=== PATIENT | female | born 2000 | race Caucasian/White ===

== ENCOUNTER 2024-11-02 10:00 | Outpatient (RCR) | payer BC, SELFPAY | END 2025-01-03 11:36 | disposition home or self-care (01) | PROVIDERS: Visit Provider Physician Assistant Medical | DX: G89.4 Chronic pain syndrome (principal); R51.9 Headache, unspecified; R42 Dizziness and giddiness; M54.2 Cervicalgia; Z51.89 Encounter for other specified aftercare | CPT/HCPCS: 97110; 97140; 97162 ==

== ENCOUNTER 2025-01-09 12:01 | Emergency (ER) | payer BC, SELFPAY ==
[2025-01-09] VITALS (21 sets, daily range): BP systolic 97–112; BP diastolic 68–81; PULSE 75–107; RESP 10–21; TEMP 37; O2SAT 97–100; BMI 20.7
--- OUTSIDE RECORDS SUMMARY | 2025-01-09 12:04 | XMS_ITS | Clinical Summary ---
Author Organization [facility] Address [address] [address] Care Team Providers Care Scientific Illustrator Name Role Phone Unassigned, Provider Primary Care Provider Unava ilable Source Comments You are receiving this document as you are listed as the primary care provider,follow-up provider, or the patient has been referred to you for consultation.This is in compliance with the Medicare andMedicaid EHR Incentive Program,which states Providers who transition their patient to another setting of careor provider of care or refers their patient to another provider of care shouldprovide summary care record for each transition of care or referral. [facility] Allergies Active Allergy Reactions Criticality Noted Date Comments Amoxicillin Unknown 09/22/2017 Penicillins Hives High 05/26/2018 Medications ketoconazole (NIZORAL) 2 % shampoo ERIC EXT 3 TO QDW DIRECTED. LEAVE ON FOR 5 MIN THEN WASH OUT 11 03/18/2019 Active oseltamivir (TAMIFLU) 75 MG capsule 0 01/30/2019 Active Active Problems No known active problems Social History Tobacco Use Types Packs/Day Years Used Date Smoking Tobacco: Never Smokeless Tobacco: Never Alcohol Use Standard Drinks/Week Comments Never 0 (1 standard drink = 0.6 oz pur e alcohol) AUDIT-C Answer Date Recorded Frequency of Alcohol Consumption Never 04/20/2019 Average Number of Drinks Not on file 019 Frequency of Binge Drinking Not on file 03/27 Comments No Sex and Gender Information Value Date Recorded Sex Assigned at Not on file Legal Sex Female 5:24 AM CDT Gender Identity Not on file Sexual Orientation Not on file Plan of Treatment Health Maintenance Due Date Last Done Comments Cervical Cancer Screening Due 2002 Chlamydia 2002 Hep C Screening (Preventive Services) 2002 MenB Immunization Discussion 2002 IPV (Polio) Vaccine (3 of 3 - 4-dose series) 09/17/2008 03/18/2008, 02/03/2004 HIV Screening (Preventive Services) 2018 Adult Preventive Visit 2020 HepB Vaccine (1) 2021 COVID-19 Vaccine (3 - season) 2024 01/26/2021, 12/29/2020 Influenza Vaccine (#1) 2024 1, 08/07/2010, 07/22/2009, Additional history exists DTaP/Tdap/Td Vaccine (4 - Tdap) 03/17/2025 03/17/2015, 03/18/2008, 10/28/2003 Zoster/Shingles Vaccine (1 of 2) 2052 Hib Vaccine Completed 10/28/2003 Pneumococcal Vaccine Aged Out 10/28/2003, 07/30/20 03 No longer eligible based on patient's age to complete this topic HepA Vaccine Completed 05/09/2007, 11/07/2006 HPV Vaccine Completed 06/18/2016, 04/26, 03/17/2015 MCV4 Vaccine Completed 08/10/2019, 05/08/2015 Insurance [facility] Care Teams Scientific Illustrator Relationship Specialty Start Date End Date Unassigned, Provider [address] [place] [address] PCP - General 02
--- OUTSIDE RECORDS SUMMARY | 2025-01-09 12:04 | XMS_ITS | Clinical Summary ---
Author Organization [facility] Address [address] [place] [address] Care Team Providers Care Gold And Silver Assayer Name Role Phone Galileo Arreaga APRN CADD OPERATOR Primary Car e Provider Ramírez Corcoran MD Unavailable [phone] Allergies Active Allergy Reactions Criticality Noted Date Comments Amoxicillin 09/09/2019 Penicillins 09/09/2019 Medications SERTRALINE HCL PO Take 50 mg by mouth daily Active amphetamine-dext roamphetamine (ADDERALL XR) 15 MG 24 hr capsule Take 15 mg by mouth daily Active Active Problems No known active problems Resolved Problems Problem Noted Date Diagnosed Date Resolved Date Neck pain 08/20/2019 12/20/2019 Tension headache 08/20/2019 12/20/2019 Postural kyphosis, 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 12/20/2019 Social History Tobacco Use Types Packs/Day Years Used Date Smoking Tobacco: Never Smokeless Tobacco: Never Alcohol Use Standard Drinks/Week Comments Not Currently 0 (1 standard drink = 0.6 oz pur e alcohol) Adolescent Education Answer Date Record ed Getting School Help Needed Not on file 06/17 Comments Unknown Sex and Gender Information Value Date Recorded Sex Assigned at Not on file Legal Sex Female 11:41 AM SEWING MACHINE REPAIRER Gender Identity Nonbinary 11/23/2022 10:10 AM SEWING MACHINE REPAIRER Sexual Orientation Not on file Last Filed Vital Signs Vital Sign Reading Time Taken Comments Blood Pressure 106/70 12/10/2022 9:10 AM CDT Pulse 115 12/10/2022 9:10 AM CDT Temperature 37.3 C (99.2 F) 09/09/2019 6:00 PM SEWING MACHINE REPAIRER Respiratory Rate - - Oxygen Saturation 100% 12/10/2022 9:10 AM CDT Inhaled Oxygen Concentration - - Weight 59.9 kg (132 lb) 12/10/2022 9:10 AM CDT Height 174 cm (5' 8.5) 12/10/2022 9:10 AM CDT Body Mass Index 19.78 12/10/2022 9:10 AM CDT Plan of Treatment Health Maintenance Due Date Last Done Comments ADVANCE CARE PLANNING 2002 ANNUAL REVIEW OF HM ORDERS 2002 CHLAMYDIA SCREENING 2002 HEPATITIS B IMMUNIZATION (2 of 3 - 3-dose series) 11/25/2003 10/28/2003 HIV SCREENING 2017 HEPATITIS C SCREENING 2020 PAP 2023 COVID-19 Vaccine ( season) 2024 06/15/2022, 08/16/2021, 01/26/2021, Additional history exists INFLUENZA VACCINE (#1) 2024 1, 08/07/2010, 10/07/2009, Additional history exists PHQ-2 (once per calendar year) 2024 YEARLY PREVENTIVE VISIT 12/26/2024 12/27/2023 DTAP/TDAP/TD IMMUNIZATION (4 - Td or Tdap) 03/17/2025 03/17/2015, 03/18/2008, 10/28/2003 ZOSTER IMMUNIZATION (1 of 2) 2052 Pneumococcal Vaccine: Pediatrics (0 to 5 Years) and At-Risk Patients (6 to 49 Years) Aged Out 10/28/2003, 07/30/2003 No longer eligibl e based on patient's age to complete this topic HPV IMMUNIZATION Completed 06/18/2016, , 03/17/2015 MENINGITIS IMMUNIZATION Completed 08/10/2019, 05/08 MENINGITIS B IMMUNIZATION Completed 05/04/2021, 04/2021 Insurance [employer] [facility] Care Teams Gold And Silver Assayer Relationship Specialty Start Date End Date Galileo Arreaga, STRATEGIC SOLUTIONS CONSULTANT CADD OPERATOR [facility] [address] [address] PCP - General 09/09/19 Ramírez Corcoran MD [address] [address] Cardiovascular Disease 11/23/22
--- OUTSIDE RECORDS SUMMARY | 2025-01-09 12:04 | XMS_ITS | Clinical Summary ---
Author Organization [facility] Address [address] [place] [address] Care Team Providers Care Director Of Research Name Role Phone Donna Adams MD Primary Care Prov ider Allergies Active Allergy Reactions Criticality Noted Date Comments Amoxicillin Hives 09/09/2019 Influenza Virus Vaccines Anaphylaxis High 12/27/2023 Penicillins Hives 09/09/2019 Medications methylphenidate HCl (RITALIN) 5 mg tablet TAKE 1 TABLET BY MOUTH ONCE A DAY FILL ON OR AFTER 11/01/23 4 Active hydrOXYzine HCL (ATARAX) 25 mg tablet Take 25 mg by mouth at bedtime. 4 Active divalproex 250 mg Delayed-Release tabletIndication s:Migraine with status migrainosus, not intractable, unspecified migraine type Take 1 Tablet (250 mg) by mouth once daily. 30 Tablet 5 Active vilazodone 20 mg tablet 2 Tablets (40 mg). 5 Active vilazodone 20 mg tablet TAKE 1 TABLET BY MOUTH ONCE A DAY TAKE WITH FOOD 4 12/29/19 25 Discontinu ed(Reorder (E-cancel not sent)) Encounters Date Type Department Care Team Description 01/09/2025 Nurse Triage [address] [address] Donna Adams MD Dizziness 12/28/2024 11:50 AM CDT Office Visit [facility] [address] [place] [address] Jammie White PA Medication Management (Discuss different option for the headaches) 12/28/2024 Travel 11/26/2024 12:00 PM VAULT TELLER Procedure Only [facility] [address] [place] [address] Lauren Nunes L Ac Acupuncture 11/26/2024 Travel 11/12/2024 9:00 AM VAULT TELLER Procedure Only [facility] [address] [place] [address] Lauren Nunes L Ac Acupuncture 11/12/2024 Travel 10/23/2024 Telephone [facility] [address] [place] [address] Jammie White PA Medication Management (Managing Manjinder's medication) 10/19/2024 10:10 AM VAULT TELLER Office Visit [facility] [address] [place] [address] Jammie Whiet PA Medication Management (Topamax follow up on 50 mg - has not had a migraine this past week, still has no appetite, been depressed more than normal this past week.) 10/19/2024 Travel 10/12/2024 2:00 PM VAULT TELLER Office Visit [facility] [address] [place] [address] Jammie White PA Follow Up (Topamax is not helping with headaches so far. ) 10/11/2024 9:00 AM VAULT TELLER Procedure Only [facility] [address] [place] [address] Lauren Nunes L Ac Acupuncture 10/11/2024 Travel from Last 3 Months Immunizations Immunization Administration Dates Next Due DTaP 03/18/2008,10/28/2003 HIB-HepB (Comvax) 10/28/2003 HPV 9 (Gardasil 9) 06/18/2016,05/08/2015, 015 Hepatitis A (Peds) 05/09/2007,11/07/2006 Inactivated Polio Vaccine 03/18/2008,02/03/2004 Influenza A (H1N1), Inactivated 10/07/2009,08/15 Influenza Virus, Unspecified 08/25/2021(Deferred : Patient Refused) Influenza, IIV3 (Age 6-35 mos) 0,07/22/2009,07/11/2008,07/27 Influenza, IIV3 (Age >=3 years) 07/23/20 11,08/09/2006,08/30/2005,07/13,08/12/2003 MENINGOCOCCAL VACCINE 2 VIAL [id number] (MENVEO) 08/10/2019,05/08/2015 MMR 03/18/2008,08/12/2003 Meningococcal B 05/04/2021 Pneumococcal conj 7-Valent (Prevnar 7) 4,07/30/2003 Tdap 03/17/2015 Varicella Vaccine 03/18/2008,08/12/2003 Family History Medical History Relation Name Comments Ankylosing spondylitis Father Cancer-prostate Maternal Grandfather Arlette-Danlos syndrome Mother not c onfirmed Endometriosis Mother Kidney cancer Paternal Grandmother Endometriosis Sister 1 Other Sister 1 POTs Asthma Sister 2 Relation Name Status Comments Father Alive Maternal Grandfather Alive Maternal Grandmother Alive Mother Alive Paternal Grandfather Alive Paternal Grandmother Alive Sister 1 Alive Sister 2 Alive Social History Tobacco Use Types Packs/Day Years Used Date Smoking Tobacco: Never Smokeless Tobacco: Never Tobacco Cessation:Counseling Given: Yes Alcohol Use Standard Drinks/Week Comments Never 0 (1 standard drink = 0.6 oz pur e alcohol) PHQ-2 Answer Date Recorded PHQ-2 TOTAL SCORE 2 10/19/2024 Social Connections Answer Date Recorded Do you often feel lonely or isolated from those around you? 0 12/28/2024 Financial Resource Strain Answer Date R ecorded Difficulty of Paying Living Expenses 3 12/28/2024 Difficulty of Paying Living Expenses Not on file 12/28/2024 Food Insecurity Answer Date Recorded Do you worry your food will run out before you are able to buy more? 1 12/28/2024 Transportation Needs Answer Date Record ed Does lack of transportation keep you from medica l appointments? 1 12/28/2024 Does lack of transportation keep you from work, meetings or getting things that you need? 1 12/28/2024 Housing Stability Answer Date Recorded What is your housing situation today? 1 12/28/2024 Utilities Answer Date Recorded Do you have trouble paying f or utilities (for example, heat, electricity, water, phone)? 1 12/28/2024 Comments No Sex and Gender Information Value Date Recorded Sex Assigned at Female 11/23/2022 9:30 AM VAULT TELLER Legal Sex Female 8:14 AM VAULT TELLER Gender Identity Male 11/23/2022 9:30 AM VAULT TELLER Sexual Orientation Not on file Obstetrics History Last Filed Vital Signs Vital Sign Reading Time Taken Comments Blood Pressure 105/73 12/28/2024 11:46 AM CDT Pulse 112 12/28/2024 11:46 AM CDT Temperature 36.4 C (97.6 F) 12/27/2023 1:56 PM CDT Respiratory Rate - - Oxygen Saturation 99% 08/06/2024 3:02 PM VAULT TELLER Inhaled Oxygen Concentration - - Weight 63.8 kg (140 lb 9.6 oz) 12/28/2024 11:46 AM CDT Height 174.5 cm (5' 8.7) 08/06/2024 3:02 PM VAULT TELLER Body Mass Index 20.94 08/06/2024 3:02 PM VAULT TELLER Plan of Treatment Upcoming Encounters Date Type Department Care Team (Late st Contact Info) Description 01/11/2025 11:30 AM CDT Office Visit [facility] [address] [place] [address] Jammie White PA [address] [place] [address] Health Maintenance Due Date Last Done Comments HIV for age 15-65 2017 Chlamydia for age 16-24 2018 Hepatitis C screening for age 18-79 2020 Pap test for age 21-65 2023 COVID-19 vaccine series ( season) 2024 06/19/2023, 06/15/2022, 08/16/2021, Additional history exists Tetanus booster 03/17/2025 03/17/2015 BMI (ht and wt on same day) for age 18+ 08/06/2025 08/06/2024, 12/27/2023 Depression screening for age 12+ 10/23/2025 10/23/2024, 10/19/2024, 08/06/2024, Additional history exists Pneumococcal series for age 6-49 Aged Out 10/28/2003, 07/30/2003 No longer eligibl e based on patient's age to complete this topic Tdap Completed 03/17/2015 HPV series for age 9-26 Completed 06/18/20 16, 05/08/2015, 03/17/2015 HPV series for age 9-26 Completed 06/18/20 16, 05/08/2015, 03/17/2015 Procedures Procedure Name Priority Date/Time Associated Diagnosis Comments VALPROIC ACID TOTAL Routine 12/28/2024 1 2:43 PM CDT Migraine with status migrainosus, not intractable, unspecified migraine type ALT (SGPT) Routine 12/28/2024 12:43 PM CDT Migraine with status migrainosus, not intractable, unspecified migraine type AST (SGOT) Routine 12/28/2024 12:43 PM CDT Migraine with status migrainosus, not intractable, unspecified migraine type CBC WITH AUTO DIFFERENTIAL Routine 12/28/2024 12:43 PM CDT Migraine with status migrainosus, not intractable, unspecified migraine type ACUPUNCTURE PLAN OF CARE Routine 11/26/2024 12:00 PM VAULT TELLER Other chronic pain ACUPUNCTURE PLAN OF CARE Routine 11/12/2024 8:47 AM VAULT TELLER Other chronic pain ACUPUNCTURE PLAN OF CARE Routine 11/05/2024 11:53 AM VAULT TELLER Other chronic pain CALCITRIOL(1 25 DI OH VIT D) Routine 10/12/2024 3:04 PM VAULT TELLER OCCULT BLOOD IFOBT STOOL Routine 10/12/2024 3:04 PM VAULT TELLER TSH Routine 10/12/2024 3:04 PM VAULT TELLER Chronic pain syndrome Bilateral headaches Vertigo H/O iron deficiency anemia Vitamin D deficiency VITAMIN B12 Routine 10/12/2024 3:04 PM VAULT TELLER Chronic pain syndrome Bilateral headaches Vertigo H/O iron deficiency anemia Vitamin D deficiency HEMOGLOBIN Routine 10/12/2024 3:04 PM VAULT TELLER Chronic pain syndrome Bilateral headaches Vertigo H/O iron deficiency anemia Vitamin D deficiency from Last 3 Months Results * (ABNORMAL) VALPROIC ACID TOTAL (12/28/2024 12:43 PM CDT) [facility] VALPROIC ACID <12.5(L) 50.0 - 100.0 mg/L [facility] Comment: Verified by repeat analysis. Blood BLOOD SPECIMEN / Unknown 12/28/2024 12:43 PM CDT 12/28/2024 12:43 PM CDT Jammie FIERRO CHEMISTRY Final R esult [facility] [address] [place] [address], [facility] [address] [place] [phone] * (ABNORMAL) CBC AND DIFFERENTIAL (12/28/2024 12:43 PM CDT) [facility] WHITE BLOOD CELL COUNT 11.2(H) 3.8 - 10.8 Thousand/u L [facility] RED BLOOD CELL COUNT 4.72 3.80 - 5.10 Million/uL [facility] HEMOGLOBIN 14.5 11.7 - 15.5 g/dL [facility] HEMATOCRIT 43.1 35.0 - 45.0 % [facility] MCV 91.3 80.0 - 100.0 fL [facility] MCH 30.7 27.0 - 33.0 pg [facility] MCHC 33.6 32.0 - 36.0 g/dL [facility] Comment: For adults, a slight decrease in the calculated MCHC value (in the range of 30 to 32 g/dL) is most likely not clinically significant; however, it should be interpreted with caution in correlation with other red cell parameters and the patient's clinical condition. RDW 11.8 11.0 - 15.0 % [facility] PLATELET COUNT 273 140 - 400 Thousand/u L [facility] MPV 11.8 7.5 - 12.5 fL [facility] ABSOLUTE NEUTROPHILS 7,896(H) 1,500 - 7,800 cells/uL [facility] ABSOLUTE LYMPHOCYTES 2,206 850 - 3,900 cells/uL [facility] ABSOLUTE MONOCYTES 717 200 - 950 cells/uL [facility] ABSOLUTE EOSINOPHILS 347 15 - 500 cells/uL [facility] ABSOLUTE BASOPHILS 34 0 - 200 cells/uL [facility] NEUTROPHILS 70.5 % [facility] LYMPHOCYTES 19.7 % [facility] MONOCYTES 6.4 % [facility] EOSINOPHILS 3.1 % [facility] BASOPHILS 0.3 % [facility] Blood BLOOD SPECIMEN / Unknown 12/28/2024 12:43 PM CDT 12/28/2024 12:43 PM CDT us Jammie FIERRO HEMATOLOGY Final R esult [facility] [address] [place] [address], [facility] [address] [place] [address] * ALT (SGPT) (12/28/2024 12:43 PM CDT) ALT 14 6 - 29 U/L [facility] Blood BLOOD SPECIMEN / Unknown 12/28/2024 12:43 PM CDT 12/28/2024 12:43 PM CDT us Jammie FIERRO CHEMISTRY Final R esult Performing Organization Address [facility] Co de Phone Number [facility] [address] [place] [address], [employer] [facility] [address] [place] [address] * AST (SGOT) (12/28/2024 12:43 PM CDT) [facility] AST 18 10 - 30 U/L [email or web address] [place] Blood BLOOD SPECIMEN / Unknown 12/28/2024 12:43 PM CDT 12/28/2024 12:43 PM CDT Jammie FIERRO CHEMISTRY Final R esult Performing Organization Address [facility] Co de Phone Number [facility] [address] [place] [phone], [facility] [address] [place] [address] * CALCITRIOL(1 25 DI OH VIT D) (10/12/2024 3:04 PM VAULT TELLER) [facility] VITAMIN D, 1,25 (OH)2, TOTAL 52 pg/mL [facility] VITAMIN D3, 1,25 (OH)2 52 pg/mL [facility] VITAMIN D2, 1,25 (OH)2 <8 pg/mL [facility] Comment: (Note) Vitamin D3, 1,25(OH)2 indicates both endogenous production and supplementation. Vitamin D2, 1,25(OH)2 is an indicator of exogenous sources, such as diet or supplementation. Interpretation and therapy are based on measurement of Vitamin D, 1,25 (OH)2, Total. This test was developed, and its analytical performance characteristics have been determined by [facility]. It has not been cleared or approved by the FDA. This assay has been validated pursuant to the CLIA regulations and is used for clinical purposes. For additional information, please refer to http://education.[email or web address]/CNV302 (This link is being provided for informational/educational purposes only.) [facility] [address] [facility] [address] [place] [address] Luigi Champagne MD, PhD 10/12/2024 3:04 PM VAULT TELLER 10/13/2024 8:07 AM VAULT TELLER Narrative [facility] - 10/17/2024 3:33 PM VAULT TELLER FASTING: UNKNOWN Doctor Unknown SEND OUTS Final Result [facility] [address] [place] [phone], [facility] [address] [place] [address], [address] [place] [phone] * OCCULT BLOOD IFOBT STOOL (10/12/2024 3:04 PM VAULT TELLER) FECAL GLOBIN BY IMMUNOCHEMISTRY [facility] [place] Comment: FECAL GLOBIN BY IMMUNOCHEMISTRY Micro Number: [id number] Test Status: Final Specimen Source: Not given Specimen Quality: Inadequate Fecal Globin: Test not performed. No suitable specimen received. Please review the test requirements at [email or web address][email or web address] 10/12/2024 3:04 PM VAULT TELLER 10/13/2024 8:07 AM VAULT TELLER Narrative [facility] - 10/17/2024 3:33 PM VAULT TELLER FASTING: UNKNOWN Doctor Unknown LABORATORY Final Result [facility] [address] [place] [address], [facility] [address] [place] [address] * TSH (10/12/2024 3:04 PM VAULT TELLER) TSH 0.58 0.40 - 4.50 mIU/L [facility] [place] Blood BLOOD SPECIMEN / Unknown 10/12/2024 3:04 PM VAULT TELLER 10/13/2024 8:07 AM VAULT TELLER Narrative [facility] - 10/17/2024 3:33 PM VAULT TELLER FASTING: UNKNOWN us Jammie FIERRO CHEMISTRY Final R esult [facility] [address] [place] [address], [place] [phone] [facility] [address] [place] [address] * HEMOGLOBIN (10/12/2024 3:04 PM VAULT TELLER) HEMOGLOBIN 13.2 13.2 - 15.5 g/dL [facility] Blood BLOOD SPECIMEN / Unknown 10/12/2024 3:04 PM VAULT TELLER 10/13/2024 8:07 AM VAULT TELLER Narrative [facility] - 10/17/2024 3:33 PM VAULT TELLER FASTING: UNKNOWN Jammie FIERRO HEMATOLOGY Final R esult Performing Organization Address [facility]/ZIP Co de Phone Number [facility] [address] [place] [address], [place] [phone] [facility] [address] [place] [address] * VITAMIN B12 (10/12/2024 3:04 PM VAULT TELLER) VITAMIN B12 427 200 - 1,100 pg/mL [facility] Blood BLOOD SPECIMEN / Unknown 10/12/2024 3:04 PM VAULT TELLER 10/13/2024 8:07 AM VAULT TELLER Narrative [facility] - 10/17/2024 3:33 PM VAULT TELLER FASTING: UNKNOWN Jammie FIERRO CHEMISTRY Final R esult [facility] [address] [place] [address], [place] [phone] [facility] [address] [place] [address] from Last 3 Months Insurance [facility] ADV[facility]AGE [facility] ADVANTAGE Care Teams Director Of Research Relationship Specialty Start Date End Date [place] [address] PCP - General Family Practice 12/27/23
--- NOTE | 2025-01-09 12:25 | ED.GENADULT ---
HPI - General Adult General Chief complaint: Dizziness/Vertigo Stated complaint: vertigo- Time Seen by Provider: 01/09/25 12:08 History of Present Illness HPI narrative: identifies as Manjinder. comes here due to having intermittent episodes of vertigo. admits that she is very stressed due to being a [employer]. Sr. admits that has missed meals at time. has been passing out from a few seconds to 2 minutes when she gets the vertigo. this occurred usually 2times a day since Tuesday, none on Tuesday. admits to having chronic pain with them manifested as migraines. is on a new med for prevention for her migraines. 24-year-old woman presenting to the emergency department accompanied by her father with concern of intermittent vertigo. Yesterday evening subtly the room was spinning and set herself down and passed out briefly. This has been occurring a number of times daily over the last few days. Does have underlying history of migraines. Just started a new medication in the form of Depakote. Reports having had lab draw about 10 days ago in anticipation of medication and all was normal. Chronic headaches with some tension component. Does have a history of ?blacking out? and historically that have been related to anemia. Does not feel chest pain with these episodes. They are not clearly associated with transition. No shortness of breath. Related Data Home Medications ?Medication ?Instructions ?Recorded ?Confirmed methylphenidate HCl 5 mg tablet 5 mg PO DAILY 10/15/23 08/31/24 vilazodone 20 mg tablet 20 mg PO DAILY 10/15/23 08/31/24 hydroxyzine HCl 25 mg tablet 25 mg PO QPM PRN insomnia 08/31/24 08/31/24 Allergies Allergy/AdvReac Type Severity Reaction Status Date / Time amoxicillin Allergy Intermediate Hives Verified 08/31/24 14:35 Penicillins Allergy Mild Hives Verified 08/31/24 14:35 Influenza Virus Vaccines AdvReac Severe Anaphylaxis Verified 08/31/24 14:35 Review of Systems Status of ROS: Reports: 6 or more systems reviewed and unremarkable except as noted in History and below Exam Narrative: Exam Narrative: Not able to reproduce symptoms here at this time though when went from lying to sitting had reported some dizziness with orthostatics. Pleasant. NAD. Cranial nerves 2-12 intact. There is no nystagmus. Neck is supple nontender. No pulsatile masses about the neck. The clear. Heart in elevated rate but regular rhythm. Extremities are well perfused without edema. Const: Vital Signs, click to edit/add: Vital Signs - 24 hr 01/09/25 12:08 01/09/25 12:32 Temperature 98.6 F Pulse Rate [Pulse Oximeter] 100 Pulse Rate [orthos tatic lying] 91 Pulse Rate [orthos tatic sitting] 92 Pulse Rate [orthos tatic standing] 105 H Respiratory Rate 20 Blood Pressure [Ri ght Upper Arm] 112/75 Blood Pressure [or thostatic lying] 101/68 Blood Pressure [or thostatic sitting] 111/78 Blood Pressure [or thostatic standing ] 111/78 Pulse Oximetry 97 Oxygen Delivery Me thod Room Air Documenting provider has reviewed patient's vital signs: yes Course Vital Signs Vital signs: Initial Vital Signs Temperature 98.6 F 01/09/25 12:08 Temperature Source Temporal Artery Scan 01/09/25 12:08 Pulse Rate 100 01/09/25 12:08 Pulse Rhythm Regular 01/09/25 12:08 Respiratory Rate 20 01/09/25 12:08 Blood Pressure 112/75 01/09/25 12:08 Blood Pressure Mean 87 01/09/25 12:08 Pulse Oximetry 97 01/09/25 12:08 Oxygen Delivery Method Room Air 01/09/25 12:08 Vital Signs Temperature 98.6 F 01/09/25 12:08 Pulse Rate 100 01/09/25 12:08 Respiratory Rate 20 01/09/25 12:08 Blood Pressure 112/75 01/09/25 12:08 Pulse Oximetry 97 01/09/25 12:08 Oxygen Delivery Method Room Air 01/09/25 12:08 Temperature 98.6 F 01/09/25 12:08 Pulse Rate 86 01/09/25 15:30 Respiratory Rate 21 01/09/25 15:31 Blood Pressure 103/73 01/09/25 15:31 Pulse Oximetry 98 01/09/25 15:30 Oxygen Delivery Method Room Air 01/09/25 12:08 Medications Administered Medications: Discontinued Medications Generic Name Dose Route Start Last Admin Trade Name Freq PRN Reason Stop Dose Admin Sodium Chloride 1,000 mls @ 1,000 mls/hr 01/09/25 13:09 01/09/25 14:25 0.9 % Sodium Chloride 1000 Ml IV 01/09/25 14:08 Not Given .Q1H ONE Medical Decision Making MDM Narrative Medical decision making narrative: With intermittent non transitional episodes one thinks about cardiac arrhythmia/dysrhythmia or possible brainstem ischemia. Will offer CT imaging contrasted head and neck and continued more on court recording monitor. EKG done before I see Mary shows normal sinus at 95. Observed on monitor to have normal physiologic variation in rate. Does not appear to be a neuritis necessarily. Could have some aneurysm or anatomic variant that could be creating a problem. I do think in this case imaging will likely be normal in that will require other testing with neurology follow-up. Likely multifactorial. Symptoms, propensity has preceded Depakote dosing. She is looking for recent labs done would not need to repeat them in that case. Was able to review recent normal labs but no chemistries available so will least check this. Monitored without event in the emergency department. CT imaging is reviewed. Technique: Routine protocol. Comparison: Same day CTA head and neck. Findings: Extra-axial spaces: Normal. Brain: No intracranial hemorrhage mass lesion or acute cortical ischemia. Minor patchy white-matter changes are nonspecific but consistent with small vessel ischemic/degenerative changes. Ventricles: No hydrocephalus. Commensurate with the sulci. Midline: No shift. Normal structures. Posterior fossa: Normal. Orbits: Normal. Paranasal sinuses: Normal. Mastoid sinuses: Normal. Skull base and calvarium: Normal. Impression: No acute intracranial abnormalities. Please note that all CT scans at this facility use dose modulation, iterative reconstruction, and/or weight-based dosing when appropriate to reduce radiation dose to as low as reasonably achievable. Dictated by Juan Lewis MD @ 01/09/2025 2:01:43 PM TECHNIQUE: Standard helical CT image acquisition through the head following the administration of intravenous contrast was performed. 3D and MIP reconstructions were performed at a separate workstation and permanently archived. COMPARISON: None available. FINDINGS: No intracranial proximal large vessel occlusion or flow-limiting luminal stenosis. No evidence of cerebral aneurysm. No findings to suggest an arterial-venous shunting lesion. The major dural venous sinuses and deep venous system are patent. IMPRESSION: No intracranial proximal large vessel occlusion, flow-limiting luminal stenosis, or cerebral aneurysm. Please note that all CT scans at this facility use dose modulation, iterative reconstruction, and/or weight-based dosing when appropriate to reduce radiation dose to as low as reasonably achievable. Dictated by Noel Blackburn MD @ 01/10/2025 8:46:49 AM TECHNIQUE: Standard helical CT image acquisition through the neck was performed after intravenous contrast bolus enhancement. 3D and MIP reconstructions were performed at a separate workstation and permanently archived. COMPARISON: None available. FINDINGS: The origins of the great vessels from the aortic arch are patent. The common carotid arteries are patent. No significant luminal stenoses of the proximal ICAs by NASCET criteria. The more distal cervical segments of the ICAs are patent. The origins and cervical segments of the vertebral arteries are patent. IMPRESSION: Patent cervical arterial vasculature without hemodynamically significant luminal stenosis. Please note that all CT scans at this facility use dose modulation, iterative reconstruction, and/or weight-based dosing when appropriate to reduce radiation dose to as low as reasonably achievable. Dictated by Noel Blackburn MD @ 01/10/2025 8:40:46 AM Reviewed findings/absence of findings with Mary her dad. I think that cardiac monitoring is of lower yield but would complete what we can do here is evaluation. After discussion Mray and father would like to do that as well See patient discharge plan for further discussion Continue to hydrate. Please return Zio patch once complete. Anticipate follow-up with your primary care provider in a week for these results. Would also than consider further workup for these episodes. This might include neurology consult. Return for persistent and more dense symptoms. We will call you if there is anything else of significance noted on 2nd radiology over-read of the images today. Please disc of images with you today for potential follow-up. Medical Records Medical records reviewed: Yes I reviewed the patient's medical records Lab Data Lab results reviewed: Yes I reviewed the patient's lab results Labs: Lab Results 01/09/25 Range/Units 14:20 Sodium 138 (135-149) mmol/L Potassium 3.9 (3.6-5.1) mmol/L Chloride 105 (96-114) mmol/L Carbon Dioxide 25 (20-32) mmol/L Anion Gap 8 (7-15) mEq/L BUN 9 (5-24) mg/dL Creatinine 0.7 (0.5-1.5) mg/dL Estimated Creat Clear 126.38 Estimated GFR 125 ml/min Glucose 91 (60-115) mg/dL Calcium 8.8 (8.4-10.6) mg/dL ECG Data Attestation: I personally reviewed and interpreted this ECG as follows: (Normal sinus rhythm rate of 95. No delta wave. No ischemic changes.) Discharge Plan Discharge Clinical Impression: Vertigo, Syncope Patient Disposition: Home w/ Parent or Adult Condition: Stable Additional Instructions: Continue to hydrate. Please return Zio patch once complete. Anticipate follow-up with your primary care provider in a week for these results. Would also than consider further workup for these episodes. This might include neurology consult. Return for persistent and more dense symptoms. We will call you if there is anything else of significance noted on 2nd radiology over-read of the images today. Please disc of images with you today for potential follow-up. Prescriptions: No Action vilazodone 20 mg tablet 20 mg PO DAILY methylphenidate HCl 5 mg tablet 5 mg PO DAILY hydroxyzine HCl 25 mg tablet 25 mg PO QPM PRN (Reason: insomnia) Follow Up/Referrals: Provider,Not a Local [Primary Care Provider] - Stand Alone Forms: [facility] Info Instructions
--- NOTE | 2025-01-09 13:10 | CRLHL7_ITS ---
For Patients: As a result of the Century Cures Act, medical imaging exams and procedure reports are released immediately into your electronic medical record. You may view this report before your referring provider. If you have questions, please contact your health care provider. CLINICAL HISTORY: Intermittent dizziness. TECHNIQUE: Standard helical CT image acquisition through the neck was performed after intravenous contrast bolus enhancement. 3D and MIP reconstructions were performed at a separate workstation and permanently archived. COMPARISON: None available. FINDINGS: The origins of the great vessels from the aortic arch are patent. The common carotid arteries are patent. No significant luminal stenoses of the proximal ICAs by NASCET criteria. The more distal cervical segments of the ICAs are patent. The origins and cervical segments of the vertebral arteries are patent. IMPRESSION: Patent cervical arterial vasculature without hemodynamically significant luminal stenosis. Please note that all CT scans at this facility use dose modulation, iterative reconstruction, and/or weight-based dosing when appropriate to reduce radiation dose to as low as reasonably achievable. Dictated by Noel Blackburn MD @ 01/10/2025 8:40:46 AM (Electronically Signed)
--- NOTE | 2025-01-09 13:10 | CRLHL7_ITS ---
For Patients: As a result of the Century Cures Act, medical imaging exams and procedure reports are released immediately into your electronic medical record. You may view this report before your referring provider. If you have questions, please contact your health care provider. CLINICAL HISTORY: Intermittent dizziness. TECHNIQUE: Standard helical CT image acquisition through the head following the administration of intravenous contrast was performed. 3D and MIP reconstructions were performed at a separate workstation and permanently archived. COMPARISON: None available. FINDINGS: No intracranial proximal large vessel occlusion or flow-limiting luminal stenosis. No evidence of cerebral aneurysm. No findings to suggest an arterial-venous shunting lesion. The major dural venous sinuses and deep venous system are patent. IMPRESSION: No intracranial proximal large vessel occlusion, flow-limiting luminal stenosis, or cerebral aneurysm. Please note that all CT scans at this facility use dose modulation, iterative reconstruction, and/or weight-based dosing when appropriate to reduce radiation dose to as low as reasonably achievable. Dictated by Noel Blackburn MD @ 01/10/2025 8:46:49 AM (Electronically Signed)
--- NOTE | 2025-01-09 13:10 | CRLHL7_ITS ---
For Patients: As a result of the Century Cures Act, medical imaging exams and procedure reports are released immediately into your electronic medical record. You may view this report before your referring provider. If you have questions, please contact your health care provider. Indication: Intermittent dizziness to point of syncope. Technique: Routine protocol. Comparison: Same day CTA head and neck. Findings: Extra-axial spaces: Normal. Brain: No intracranial hemorrhage mass lesion or acute cortical ischemia. Minor patchy white-matter changes are nonspecific but consistent with small vessel ischemic/degenerative changes. Ventricles: No hydrocephalus. Commensurate with the sulci. Midline: No shift. Normal structures. Posterior fossa: Normal. Orbits: Normal. Paranasal sinuses: Normal. Mastoid sinuses: Normal. Skull base and calvarium: Normal. Impression: No acute intracranial abnormalities. Please note that all CT scans at this facility use dose modulation, iterative reconstruction, and/or weight-based dosing when appropriate to reduce radiation dose to as low as reasonably achievable. Dictated by Juan Lewis MD @ 01/09/2025 2:01:43 PM (Electronically Signed)
--- OUTSIDE RECORDS SUMMARY | 2025-01-09 14:22 | XMS_ITS | Clinical Summary ---
Author Organization [facility] Address [address] [address] Care Team Providers Care Art Historian Name Role Phone Unassigned, Provider Primary Care [...] for each transition of care or referral. [facility] Allergies Active Allergy Reactions Criticality Noted [...] 03/17/2015 MCV4 Vaccine Completed 08/10/2019, 05/08/2015 Insurance [facility] Care Teams Art Historian Relationship Specialty Start Date End Date Unassigned, Provider [address] [place] [address] PCP - General 02
--- OUTSIDE RECORDS SUMMARY | 2025-01-09 14:22 | XMS_ITS | Clinical Summary ---
Author Organization [facility] Address [address] [place] [id number] Care Team Providers Care Grinder Set Up Operator Surface Name Role Phone Galileo Arreaga APRN WASH HELPER Primary Car e Provider Ramírez Corcoran MD Unavailable [phone] Allergies Active Allergy Reactions Criticality Noted Date [...] on file Legal Sex Female 11:41 AM PRODUCTION POTTER Gender Identity Nonbinary 11/23/2022 10:10 AM PRODUCTION POTTER Sexual Orientation Not on file Last Filed Vital Signs Vital Sign Reading Time Taken Comments Blood Pressure 106/70 12/10/2022 9:10 AM CDT Pulse 115 12/10/2022 9:10 AM CDT Temperature 37.3 C (99.2 F) 09/09/2019 6:00 PM PRODUCTION POTTER Respiratory Rate - - Oxygen Saturation 100% [...] IMMUNIZATION Completed 05/04/2021, 04/2021 Insurance [employer] Care Teams Grinder Set Up Operator Surface Relationship Specialty Start Date End Date Galileo Arreaga, CARDIAC EXERCISE PHYSIOLOGIST WASH HELPER [facility] [id number] [address] PCP - General 09/09/19 Ramírez Corcoran MD [address] [address] Cardiovascular Disease 11/23/22
--- OUTSIDE RECORDS SUMMARY | 2025-01-09 14:22 | XMS_ITS | Clinical Summary ---
Author Organization [facility] Address [address] [place] [id number] Care Team Providers Care Brewer Helper Name Role Phone Donna Adams MD Primary [...] Department Care Team Description 01/09/2025 Nurse Triage [address] [address] Donna Adams MD Dizziness 12/28/2024 11:50 AM CDT Office Visit [facility] [address] [place] [address] Jammie White PA Medication Management (Discuss different option for the headaches) 12/28/2024 Travel 11/26/2024 12:00 PM INSULATION CUPOLA CHARGER Procedure Only [facility] [address] [place] [address] Lauren Nunes L Ac Acupuncture 11/26/2024 Travel 11/12/2024 9:00 AM INSULATION CUPOLA CHARGER Procedure Only [facility] [address] [place] [address] Lauren Nunes L Ac Acupuncture 11/12/2024 Travel 10/23/2024 Telephone [facility] [address] [place] [address] Jammie White PA Medication Management (Managing Manjinder's medication) 10/19/2024 10:10 AM INSULATION CUPOLA CHARGER Office Visit [facility] [address] [place] [address] Jammie White PA Medication Management (Topamax follow up on 50 mg - has not had a migraine this past week, still has no appetite, been depressed more than normal this past week.) 10/19/2024 Travel 10/12/2024 2:00 PM INSULATION CUPOLA CHARGER Office Visit [facility] [address] [place] [address] Jammie White PA Follow Up (Topamax is not helping with headaches so far. ) 10/11/2024 9:00 AM INSULATION CUPOLA CHARGER Procedure Only [facility] [address] [place] [address] Lauren Nunes L Ac Acupuncture 10/11/2024 Travel [...] Sex Assigned at Female 11/23/2022 9:30 AM INSULATION CUPOLA CHARGER Legal Sex Female 8:14 AM INSULATION CUPOLA CHARGER Gender Identity Male 11/23/2022 9:30 AM INSULATION CUPOLA CHARGER Sexual Orientation Not on file Obstetrics History Last Filed Vital Signs Vital Sign Reading Time Taken Comments Blood Pressure 105/73 12/28/2024 11:46 AM CDT Pulse 112 12/28/2024 11:46 AM CDT Temperature 36.4 C (97.6 F) 12/27/2023 1:56 PM CDT Respiratory Rate - - Oxygen Saturation 99% 08/06/2024 3:02 PM INSULATION CUPOLA CHARGER Inhaled Oxygen Concentration - - Weight 63.8 kg (140 lb 9.6 oz) 12/28/2024 11:46 AM CDT Height 174.5 cm (5' 8.7) 08/06/2024 3:02 PM INSULATION CUPOLA CHARGER Body Mass Index 20.94 08/06/2024 3:02 PM INSULATION CUPOLA CHARGER Plan of Treatment Upcoming Encounters Date Type Department Care Team (Late st Contact Info) Description 01/11/2025 11:30 AM CDT Office Visit [facility] [address] [place] [address] Jammie White PA [address] [place] [address] Health Maintenance Due Date Last Done Comments [...] PLAN OF CARE Routine 11/26/2024 12:00 PM INSULATION CUPOLA CHARGER Other chronic pain ACUPUNCTURE PLAN OF CARE Routine 11/12/2024 8:47 AM INSULATION CUPOLA CHARGER Other chronic pain ACUPUNCTURE PLAN OF CARE Routine 11/05/2024 11:53 AM INSULATION CUPOLA CHARGER Other chronic pain CALCITRIOL(1 25 DI OH VIT D) Routine 10/12/2024 3:04 PM INSULATION CUPOLA CHARGER OCCULT BLOOD IFOBT STOOL Routine 10/12/2024 3:04 PM INSULATION CUPOLA CHARGER TSH Routine 10/12/2024 3:04 PM INSULATION CUPOLA CHARGER Chronic pain syndrome Bilateral headaches Vertigo H/O iron deficiency anemia Vitamin D deficiency VITAMIN B12 Routine 10/12/2024 3:04 PM INSULATION CUPOLA CHARGER Chronic pain syndrome Bilateral headaches Vertigo H/O iron deficiency anemia Vitamin D deficiency HEMOGLOBIN Routine 10/12/2024 3:04 PM INSULATION CUPOLA CHARGER Chronic pain syndrome Bilateral headaches Vertigo H/O iron deficiency anemia Vitamin D deficiency from Last 3 Months Results * (ABNORMAL) VALPROIC ACID TOTAL (12/28/2024 12:43 PM CDT) [facility] VALPROIC ACID <12.5(L) 50.0 - 100.0 mg/L [facility] Comment: Verified by repeat analysis. Blood BLOOD SPECIMEN / Unknown 12/28/2024 12:43 PM CDT 12/28/2024 12:43 PM CDT Jammie FIERRO CHEMISTRY Final R esult [employer] [facility] [address] [place] [address], [facility] [address] [place] [phone] * (ABNORMAL) CBC AND DIFFERENTIAL (12/28/2024 12:43 PM CDT) [facility] [address] [facility] WHITE BLOOD CELL COUNT 11.2(H) 3.8 - [...] FIERRO HEMATOLOGY Final R esult [facility] [address] [place] [address], [facility] [address] [place] [address] * ALT (SGPT) (12/28/2024 12:43 PM CDT) ALT 14 6 - 29 U/L [facility] Blood BLOOD SPECIMEN / Unknown 12/28/2024 12:43 PM CDT 12/28/2024 12:43 PM CDT us Jammie FIERRO CHEMISTRY Final R esult Performing Organization Address [facility] Co de Phone Number [employer] [facility] [address] [place] [address], [facility] [address] [place] [address] * AST (SGOT) (12/28/2024 12:43 PM CDT) [facility] [address] [facility] AST 18 10 - 30 U/L [facility] [place] Blood BLOOD SPECIMEN / Unknown 12/28/2024 12:43 PM CDT 12/28/2024 12:43 PM CDT Jammie FIERRO CHEMISTRY Final R esult Performing Organization Address [facility] Co de Phone Number [employer] [facility] [address] [place] [phone], [facility] [address] [place] [address] * CALCITRIOL(1 25 DI [place] VIT D) (10/12/2024 3:04 PM INSULATION CUPOLA CHARGER) [facility] [address] [facility] VITAMIN D, 1,25 (OH)2, TOTAL 52 pg/mL [...] analytical performance characteristics have been determined by [employer]. It has not been cleared or approved by the FDA. This assay has been validated pursuant to the CLIA regulations and is used for clinical purposes. For additional information, please refer to [email or web address] (This link is being provided for informational/educational purposes only.) [facility] [address] [facility] [address] [place] [address] Luigi Champagne MD, PhD 10/12/2024 3:04 PM INSULATION CUPOLA CHARGER 10/13/2024 8:07 AM INSULATION CUPOLA CHARGER Narrative [facility] - 10/17/2024 3:33 PM INSULATION CUPOLA CHARGER FASTING: UNKNOWN Doctor Unknown SEND OUTS Final Result [facility] [address] [place] [phone], [facility] [address] [place] [address], [address] [place] [phone] * OCCULT BLOOD IFOBT STOOL (10/12/2024 3:04 PM INSULATION CUPOLA CHARGER) FECAL GLOBIN BY IMMUNOCHEMISTRY [facility] [place] Comment: FECAL GLOBIN BY IMMUNOCHEMISTRY Micro Number: [id number] Test Status: Final Specimen Source: Not given Specimen Quality: Inadequate Fecal Globin: Test not performed. No suitable specimen received. Please review the test requirements at [email or web address] 10/12/2024 3:04 PM INSULATION CUPOLA CHARGER 10/13/2024 8:07 AM INSULATION CUPOLA CHARGER Narrative [facility] - 10/17/2024 3:33 PM INSULATION CUPOLA CHARGER FASTING: UNKNOWN Doctor Unknown LABORATORY Final Result [facility] [address] [place] [address], [facility] [address] [place] [address] * TSH (10/12/2024 3:04 PM INSULATION CUPOLA CHARGER) TSH 0.58 0.40 - 4.50 mIU/L [facility] [place] Blood BLOOD SPECIMEN / Unknown 10/12/2024 3:04 PM INSULATION CUPOLA CHARGER 10/13/2024 8:07 AM INSULATION CUPOLA CHARGER Narrative [facility] - 10/17/2024 3:33 PM INSULATION CUPOLA CHARGER FASTING: UNKNOWN us Jammie FIERRO CHEMISTRY Final R esult [facility] [address] [place] [address], [place] [phone] [facility] [address] [place] [address] * HEMOGLOBIN (10/12/2024 3:04 PM INSULATION CUPOLA CHARGER) HEMOGLOBIN 13.2 13.2 - 15.5 g/dL [facility] Blood BLOOD SPECIMEN / Unknown 10/12/2024 3:04 PM INSULATION CUPOLA CHARGER 10/13/2024 8:07 AM INSULATION CUPOLA CHARGER Narrative [facility] - 10/17/2024 3:33 PM INSULATION CUPOLA CHARGER FASTING: UNKNOWN Jammie FIERRO HEMATOLOGY Final R esult Performing Organization Address [facility]/ZIP Co de Phone Number [facility] [address] [place] [address], [place] [phone] [facility] [address] [place] [address] * VITAMIN B12 (10/12/2024 3:04 PM INSULATION CUPOLA CHARGER) VITAMIN B12 427 200 - 1,100 pg/mL [facility] Blood BLOOD SPECIMEN / Unknown 10/12/2024 3:04 PM INSULATION CUPOLA CHARGER 10/13/2024 8:07 AM INSULATION CUPOLA CHARGER Narrative [facility] - 10/17/2024 3:33 PM INSULATION CUPOLA CHARGER FASTING: UNKNOWN Jammie FIERRO CHEMISTRY Final R esult [facility] [address] [place] [address], [place] [phone] [facility] [address] [place] [address] from Last 3 Months Insurance [facility] [employer] [facility] [employer] Care Teams Brewer Helper Relationship Specialty Start Date End Date [place] [address] PCP - General Family Practice 12/27/23
[2025-01-09 14:43] LABS: Chloride* 105 mmol/L (96-114); Potassium* 3.9 mmol/L (3.6-5.1); Sodium* 138 mmol/L (135-149)
[2025-01-09 14:46] LABS: Anion Gap 8 mEq/L (7-15); Blood Urea Nitrogen* 9 mg/dL (5-24); Calcium* 8.8 mg/dL (8.4-10.6); Carbon Dioxide* 25 mmol/L (20-32); Creatinine* 0.7 mg/dL (0.5-1.5); Est. Creatinine Clearance* 126.38; Estimated Glomerular Filt Rate 125 ml/min; Glucose* 91 mg/dL (60-115)
== END 2025-01-09 15:54 | disposition home or self-care (01) ==
PROVIDERS: Emergency Provider Family Medicine
DX: R42 Dizziness and giddiness (principal); R55 Syncope and collapse
CPT/HCPCS: 36415; 70450; 70496; 70498; 80048; 93005; 93246; 99284; 99285; Q9967